=== PATIENT | female | born 1970 | race Hispanic/Latino ===

== ENCOUNTER 2023-08-22 15:00 | Observation (INO) | payer OTHER ==
[2023-08-21 15:00] LABS: BASOPHILS # (AUTO) 0.05 K/uL (0.00-0.20); BASOPHILS % (AUTO) 0.9 % (0.0-5.0); EOSINOPHILS # (AUTO) 0.13 K/uL (0.00-0.70); EOSINOPHILS % (AUTO) 2.4 % (0.0-8.0); HEMATOCRIT 42.2 % (36-48); IMMATURE GRANULOCYTE ABSOLUTE 0.02 K/uL (0-1); LYMPHOCYTES # (AUTO) 1.5 K/uL (1.0-4.8); LYMPHOCYTES % (AUTO) 27.6 % (21.0-51.0); MEAN CORPUSCULAR HEMOGLOBIN 31.9 pg (27.0-33.0); MEAN CORPUSCULAR HGB CONC 33.9 g/dL (32.0-36.0); MEAN CORPUSCULAR VOLUME 94.2 fL (79-99); MONOCYTES # (AUTO) 0.6 K/uL (0.1-1.0); MONOCYTES % (AUTO) 11.7 % (3.0-13.0); NEUTROPHILS # (AUTO) 3.1 K/uL (1.8-7.7); PLATELET COUNT (AUTO) 245 K/uL (130-400); RED BLOOD CELL COUNT(AUTO) 4.48 MIL/uL (4.00-5.50); RED CELL DISTRIBUTION WIDTH 12.3 % (11.0-15.5); WHITE BLOOD COUNT (AUTO) 5.4 K/uL (4.8-10.8)
[2023-08-21 15:10] VITALS: BP 141/68; PULSE 63; RESP 18
[~2023-08-22] VITALS: Ht 121.9 cm; Wt 51.3 kg
[~2023-08-22 15:00] MED LIST: MULT-1367 PO; VITAMIN K2 +D3 PO
[2023-08-23] VITALS (33 sets, daily range): BP systolic 118–145; BP diastolic 59–79; PULSE 55–98; RESP 13–18; O2SAT 97
[2023-08-23] MEDS: CEFAZOLIN SODIUM 2 GM VIAL ONE (06:42)
[2023-08-23] MEDS: LACTATED RINGERS 1000ML 1,000 ML IV ONE (06:43)
[2023-08-23] MEDS: FAMOTIDINE 20MG VIAL IV ONE (07:20)
[2023-08-23] MEDS ORDERED: THROMBIN-JMI 20000 UNIT KIT TP ONE (07:22)
[2023-08-23] MEDS ORDERED: SUCCINYLCHOLINE CHLORIDE 20 MG/ML 10 ML VIAL IVP ONE (07:24)
[2023-08-23] MEDS ORDERED: PROPOFOL 1000 MG/100 ML 100 ML IV ONE (07:28)
[2023-08-23] MEDS: CEFAZOLIN SODIUM 2 GM VIAL IVPB ONE (08:00)
[2023-08-23] MEDS: NEOMY SULF/BACITRAC ZN/POLY OINT 30GM TUBE TP ONE (08:44)
[2023-08-23] MEDS ORDERED: VANCOMYCIN 1G/250ML KIT 250 ML IV ONE (08:48)
[2023-08-23] MEDS: VANCOMYCIN 1G VIAL TP ONE (08:50)
[2023-08-23] MEDS ORDERED: ONDANSETRON 4MG INJ ONE (09:01)
[2023-08-23] MEDS: HYDROCODONE/ACETAMINOPHEN 10/325 MG TAB ONE (14:30)
[2023-08-23] MEDS ORDERED: MORPHINE 2 MG SYG IVP PRN (19:30)
[2023-08-23] MEDS: ONDANSETRON 4MG INJ ONE ×2 (19:57)
[2023-08-23] MEDS: LACTATED RINGERS 1000ML 1,000 ML IV SCH (19:58)
[2023-08-23] MEDS: KETOROLAC 30MG VIAL (30MG/ML) IV SCH (22:13)
[2023-08-24] VITALS (7 sets, daily range): BP systolic 100–127; BP diastolic 43–72; PULSE 61–86; RESP 16–18; O2SAT 97
[2023-08-24] MEDS: KETOROLAC 15MG/ML VIAL (15MG/ML) IV PRN (06:19)
[2023-08-25] VITALS: BP 124/73; PULSE 83; RESP 18
[2023-08-25 04:00] VITALS: BP 140/75; PULSE 87; RESP 16
[2023-08-25 07:40] VITALS: BP 132/73; PULSE 88; RESP 18
[2023-08-25 08:00] VITALS: O2SAT 100
[2023-08-25] MEDS: HYDROCODONE/ACETAMINOPHEN 5/325 MG TAB PO PRN (09:38)
[2023-08-25 11:34] VITALS: BP 132/75; PULSE 93; RESP 18
[2023-08-25 15:20] VITALS: BP 143/77; PULSE 89; RESP 18
== END 2023-08-25 19:00 | disposition home or self-care (01) ==
LOC: DAHIP 08-23 06:14 → EDSTATUS 08-23 15:00 → 3DH 08-23 17:30
PROVIDERS: ADMIT Neuromusculoskeletal Medicine & OMM; ATTEND Neuromusculoskeletal Medicine & OMM
DX: M50.00 Cervical disc disorder with myelopathy, unspecified cervical region (principal); M53.2X2 Spinal instabilities, cervical region; R07.89 Other chest pain; Z79.899 Other long term (current) drug therapy
CPT/HCPCS: 84703; 85025; 86850; 86900; 86901; 36415; 22551; 22853; 20930; 20937; 22845; 72020; A6260; G0378 ×49; G0379; A4663; A4649 ×4; A4452; J7120; J3370 ×2; J3490 ×4; J3010 ×2; J1100; J0330; J2001 ×2; J2250; J2704 ×2; J2405 ×3; J1885 ×4; J0690 ×2; G0168; A4930; A6010; C1889; A4215; A4223; A4222; A4221; A4600; C1713